=== PATIENT | female | born 1950 | race Caucasian/White ===

== ENCOUNTER 2017-05-26 19:56 | Observation (INO) | payer SELFPAY ==
[2017-05-26] MEDS ORDERED: NS 0.9% 1000 ML* 1,000 ML IV ONE ×2 (20:38→22:51)
[2017-05-26 22:23] LABS: Hematocrit 41 % (35-47); Hemoglobin 13.9 g/dl (12.0-16.0); Mean Corpuscular HGB Conc 34 g/dl (31-36); Mean Corpuscular Hemoglobin 31 pg (27-31); Mean Corpuscular Volume 92 fL (80-97); Mean Platelet Volume 8 um3 (7.4-10.4); Red Blood Count 4.46 10^6/ul (4.0-5.4); Red Cell Distribution Width 15 % (10.5-15); White Blood Count 7.5 10^3/ul (3.5-10.8)
[2017-05-26 22:43] LABS: Albumin 3.7 g/dL (3.2-5.2); BUN/Creatinine Ratio 5.3 (8-20); C Reactive Protein 14.95 mg/L (< 5.00); Calcium 9.2 mg/dL (8.6-10.3); EGFR African American 136.1 (>60); EGFR Non-African American 105.8 (>60); Total Bilirubin 0.9 mg/dL (0.2-1.0); Total Protein 6.7 g/dL (6.4-8.9)
[2017-05-26 22:44] LABS: Troponin I 0.01 ng/mL (<0.04)
[2017-05-26 22:48] LABS: Urine Bacteria Absent (Absent); Urine Bilirubin Negative (Negative); Urine Glucose Negative (Negative); Urine Nitrite Negative (Negative)
[2017-05-26 22:49] LABS: Potassium 2.2 mmol/L (3.5-5.0)
[2017-05-26] MEDS ORDERED: KCL 20 MEQ/100 ML IVPREMIX* 20 MEQ/100 ML BAG IV ONE ×2 (22:49→22:50)
[2017-05-26] MEDS ORDERED: Potassium Chlor TAB* 20 MEQ TAB.ER PO ONE (22:51)
[2017-05-26] MEDS ORDERED: Iohexol 300* (CONTRAST) 10 ML SDV IV ONE (22:56)
--- NOTE | 2017-05-26 22:57 | ED ---
Abdominal Pain/Female - HPI Summary HPI Summary: 67F presents with abdominal pain for past 5 days. She states the abdominal pain has increased for past day. she admits to nausea, vomiting. She admits to diarrhea that is chronic. she has PMH of gastroparesis which follows dr maldonado for. She states they have not found a medication that works for her gastroparesis as is allergic to reglan. She called dr maldonado who said come to ED or follow up tomorrow. She states today she noticed tingling in bilateral legs today. She states her stomach feels numb. she also states knees feel numb. She denies any chest pain or SOB. She denies any headache or dizziness. She is still able to ambulate. She denies any injury to lower extremities. She denies any fever. She has had gallbladder and uterus removed in prior surgeries. She states stomach feels like it is knotted. The location of the pain is a little bit different than normal gastroparesis pain. She states she had a cold recently. She denies any fever. She states cough has been resolved. She admits to sinus congestion that has been resolving. - History of Current Complaint Chief Complaint: Rayo Stated Complaint: ABD PAIN/DIZZINESS/NUMBNESS IN BOTH LEGS Time Seen by Provider: 05/26/17 20:17 Pain Intensity: 7 Allergies/Adverse Reactions: Allergies Allergy/AdvReac Type Severity Reaction Status Date / Time Metoclopramide [From Reglan] Allergy Intermediate Psychosis Verified 02/20/16 13 :21 Home Medications: Home Medications Cholestyramine Resin* [Questran*] 4 gm PO DAILY 05/26/17 [History Confirmed ] PMH/Surg Hx/FS Hx/Imm Hx Endocrine/Hematology History: Denies: Hx Anticoagulant Therapy, Hx Blood Disorders, Hx Blood Transfusions, Hx Bone Marrow Disease, Hx Diabetes, Hx Systemic Lupus Erythematosus, Hx Sickle Cell Disease, Hx Thyroid Disease, Hx Anemia, Hx Unexplained Bleeding, Other Endocrine/Hematological Disorders Cardiovascular History: Reports: Hx Hypercholesterolemia, Hx Hypertension, Other Cardiovascular Problems/Disorders - Hx of hypercholesterolemia Denies: Hx Aneurysm, Hx Angina, Hx Angioplasty, Hx Auto Implanted Cardiovert Defib, Hx Cardiac Arrest, Hx Cardiomegaly, Hx Congenital Heart Disease, Hx Congestive Heart Failure, Hx Coronary Artery Disease, Hx Deep Vein Thrombosis, Hx Embolism, Hx Hypotension, Hx Myocardial Infarction, Hx Pacemaker/ICD, Hx Peripheral Vascular Disease, Hx Rheumatic Fever, Hx Syncope, Hx Valvular Heart Disease Respiratory History: Denies: Hx Asthma, Hx Chronic Bronchitis, Hx Chronic Obstructive Pulmonary Disease (COPD), Hx Cystic Fibrosis, Hx Lung Cancer, Hx Pleural Effusion, Hx Pneumonia, Hx Pulmonary Edema, Hx Pulmonary Embolism, Hx Seasonal Allergies, Hx Sleep Apnea, Other Respiratory Problems/Disorders GI History: Reports: Hx Gall Bladder Disease - jerry, Hx Gastroesophageal Reflux Disease, Hx Irritable Bowel, Other GI Disorders - Diverticulitis,gerd,ibs Denies: Hx Cirrhosis, Hx Crohn's Disease, Hx Diverticulosis, Hx Gastrointestinal Bleed, Hx Hiatal Hernia, Hx Jaundice, Hx Obstructive Bowel, Hx Ileostomy, Hx Pyloric Stenosis, Hx Ulcer History: Denies: Hx Acute Renal Failure, Hx Benign Prostatic Hyperplasia, Hx Chronic Renal Failure, Hx Dialysis, Hx Kidney Infection, Hx Kidney Stones, Hx Renal Disease, Other Problems/Disorders Musculoskeletal History: Reports: Hx Back Problems, Hx Bursitis, Hx Osteoporosis , Other Musculoskeletal History - Crushed L4 Vertabra Denies: Hx Arthritis, Hx Rheumatoid Arthritis, Hx Congenital Bone Abnormalities, Hx Fibromyalgia, Hx Gout, Hx Orthopedic Injury, Hx Scoliosis, Hx Tendonitis Sensory History: Denies: Hx Cataracts, Hx Contacts or Glasses, Hx Eye Injury, Hx Eye Prosthesis, Hx Glaucoma, Hx Legally Blind, Hx Macular Degeneration, Hx Vision Problem, Hx Deafness, Hx Hearing Aid, Hx Hearing Problem, Other Sensory Impairments Opthamlomology History: Denies: Hx Cataracts, Hx Contacts or Glasses, Hx Eye Injury, Hx Eye Prosthesis, Hx Glaucoma, Hx Legally Blind, Hx Macular Degeneration, Hx Vision Problem, Other Sensory Impairments Neurological History: Denies: Hx Dementia, Hx Developmental Delay, Hx Headaches, Hx Migraine, Hx Nerve Disease, Hx Seizures, Hx Spinal Cord Injury, Hx Transient Ischemic Attacks (TIA), Other Neuro Impairments/Disorders Psychiatric History: Reports: Hx Anxiety, Hx Depression Denies: Hx Attention Deficit Hyperactivity Disorder, Hx Eating Disorder, Hx Panic Disorder, Hx Post Traumatic Stress Disorder, Hx Inpatient Treatment, Hx Community Mental Health Tx, Hx Schizophrenia, Hx Bipolar Disorder, Hx Suicide Attempt, Hx of Violent Episodes Against Others, Hx Substance Abuse, Other Psychiatric Issues/Disorders - Cancer History Hx Chemotherapy: No - Surgical History Surgery Procedure, Year, and Place: Cholecystectomy 1999; Hysterectomy 1999 Hx Anesthesia Reactions: No - Immunization History Date of Influenza Vaccine: has not received at this time. Infectious Disease History: No Infectious Disease History: Denies: Hx Clostridium Difficile, Hx Hepatitis, Hx Human Immunodeficiency Virus (HIV), Hx of Known/Suspected MRSA, Hx Shingles, Hx Tuberculosis, Hx Known/ Suspected VRE, Hx Known/Suspected VRSA, History Other Infectious Disease, Traveled Outside the [place] in Last 30 Days - Family History Known Family History: Positive: None - reviewed & noncontributory - Social History Alcohol Use: None Hx Substance Use: No Substance Use Type: Reports: None Hx Tobacco Use: No Smoking Status (MU): Never Smoked Tobacco Review of Systems Negative: Fever Negative: Chest Pain Negative: Shortness Of Breath Positive: Abdominal Pain, Vomiting, Diarrhea, Nausea Positive: Other - tingling in legs All Other Systems Reviewed And Are Negative: Yes Physical Exam Triage Information Reviewed: Yes Vital Signs On Initial Exam: Initial Vitals Temp Pulse Resp BP Pulse Ox 97.8 F 91 16 114/71 98 05/26/17 20:10 05/26/17 20:10 05/26/17 20:10 05/26/17 20:10 05/26/17 20:10 Vital Signs Reviewed: Yes Appearance: Positive: Well-Appearing Skin: Positive: Warm, Dry Head/Face: Positive: Normal Head/Face Inspection Eyes: Positive: Normal, EOMI, PEDRITO, Conjunctiva Clear ENT: Positive: Normal ENT inspection, Pharynx normal, TMs normal Respiratory/Lung Sounds: Positive: Clear to Auscultation, Breath Sounds Present Cardiovascular: Positive: Normal, RRR Abdomen Description: Positive: Soft, Other: - tenderness in center of abdomen, no rebound Bowel Sounds: Positive: Present Musculoskeletal: Positive: Normal Neurological: Positive: Normal Psychiatric: Positive: Normal Diagnostics - Vital Signs Vital Signs Temp Pulse Resp BP Pulse Ox 05/26/17 22:08 79 97 05/26/17 21:53 76 124/72 91 05/26/17 21:00 82 93 05/26/17 20:30 83 132/67 94 05/26/17 20:25 83 95 05/26/17 20:24 129/67 05/26/17 20:10 97.8 F 91 16 114/71 98 - Laboratory Lab Results: Lab Results 05/26/17 05/26/17 05/26/17 Range/Units 22:00 22:00 22:00 WBC 7.5 (3.5-10.8) 10^3/ul RBC 4.46 (4.0-5.4) 10^6/ul Hgb 13.9 (12.0-16.0) g/dl Hct 41 (35-47) % MCV 92 (80-97) fL MCH 31 (27-31) pg MCHC 34 (31-36) g/dl RDW 15 (10.5-15) % Plt Count 253 (150-450) 10^3/ul MPV 8 (7.4-10.4) um3 Neut % (Auto) 47.9 (38-83) % Lymph % (Auto) 38.1 (25-47) % [place] % (Auto) 11.4 H (1-9) % Eos % (Auto) 1.7 (0-6) % Baso % (Auto) 0.9 (0-2) % Absolute Neuts (auto) 3.6 (1.5-7.7) 10^3/ul Absolute Lymphs (auto) 2.8 (1.0-4.8) 10^3/ul Absolute Monos (auto) 0.8 (0-0.8) 10^3/ul Absolute Eos (auto) 0.1 (0-0.6) 10^3/ul Absolute Basos (auto) 0.1 (0-0.2) 10^3/ul Absolute Nucleated RBC 0.02 10^3/ul Nucleated RBC % 0.3 Sodium 136 (133-145) mmol/L Potassium 2.2 L* (3.5-5.0) mmol/L Chloride 88 L (101-111) mmol/L Carbon Dioxide 35 H (22-32) mmol/L Anion Gap 13 H (2-11) mmol/L BUN 3 L (6-24) mg/dL Creatinine 0.57 (0.51-0.95) mg/dL Est GFR ( Amer) 136.1 (>60) Est GFR (Non-Af Amer) 105.8 (>60) BUN/Creatinine Ratio 5.3 L (8-20) Glucose 113 H (70-100) mg/dL Lactic Acid 4.0 H* (0.5-2.0) mmol/L Calcium 9.2 (8.6-10.3) mg/dL Total Bilirubin 0.90 (0.2-1.0) mg/dL AST 31 (13-39) U/L ALT 10 (7-52) U/L Alkaline Phosphatase 170 H (34-104) U/L Troponin I 0.01 (<0.04) ng/mL C-Reactive Protein 14.95 H (< 5.00) mg/L Total Protein 6.7 (6.4-8.9) g/dL Albumin 3.7 (3.2-5.2) g/dL Globulin 3.0 (2-4) g/dL Albumin/Globulin Ratio 1.2 (1-3) Lipase 63 (11.0-82.0) U/L Urine Color Urine Appearance Urine pH (5-9) Ur Specific [place] (1.010-1.030) Urine Protein (Negative) Urine Ketones (Negative) Urine Blood (Negative) Urine Nitrate (Negative) Urine Bilirubin (Negative) Urine Urobilinogen (Negative) Ur Leukocyte Esterase (Negative) Urine WBC (Auto) (Absent) Urine RBC (Auto) (Absent) Ur Squamous Epith Cells (Absent) Urine Bacteria (Absent) Urine Glucose (Negative) 05/26/17 Range/Units 22:00 WBC (3.5-10.8) 10^3/ul RBC (4.0-5.4) 10^6/ul Hgb (12.0-16.0) g/dl Hct (35-47) % MCV (80-97) fL MCH (27-31) pg MCHC (31-36) g/dl RDW (10.5-15) % Plt Count (150-450) 10^3/ul MPV (7.4-10.4) um3 Neut % (Auto) (38-83) % Lymph % (Auto) (25-47) % [place] % (Auto) (1-9) % Eos % (Auto) (0-6) % Baso % (Auto) (0-2) % Absolute Neuts (auto) (1.5-7.7) 10^3/ul Absolute Lymphs (auto) (1.0-4.8) 10^3/ul Absolute Monos (auto) (0-0.8) 10^3/ul Absolute Eos (auto) (0-0.6) 10^3/ul Absolute Basos (auto) (0-0.2) 10^3/ul Absolute Nucleated RBC 10^3/ul Nucleated RBC % Sodium (133-145) mmol/L Potassium (3.5-5.0) mmol/L Chloride (101-111) mmol/L Carbon Dioxide (22-32) mmol/L Anion Gap (2-11) mmol/L BUN (6-24) mg/dL Creatinine (0.51-0.95) mg/dL Est GFR ( Amer) (>60) Est GFR (Non-Af Amer) (>60) BUN/Creatinine Ratio (8-20) Glucose (70-100) mg/dL Lactic Acid (0.5-2.0) mmol/L Calcium (8.6-10.3) mg/dL Total Bilirubin (0.2-1.0) mg/dL AST (13-39) U/L ALT (7-52) U/L Alkaline Phosphatase (34-104) U/L Troponin I (<0.04) ng/mL C-Reactive Protein (< 5.00) mg/L Total Protein (6.4-8.9) g/dL Albumin (3.2-5.2) g/dL Globulin (2-4) g/dL Albumin/Globulin Ratio (1-3) Lipase (11.0-82.0) U/L Urine Color Yellow Urine Appearance Clear Urine pH 8.0 (5-9) Ur Specific [place] 1.006 L (1.010-1.030) Urine Protein Negative (Negative) Urine Ketones Negative (Negative) Urine Blood Negative (Negative) Urine Nitrate Negative (Negative) Urine Bilirubin Negative (Negative) Urine Urobilinogen Negative (Negative) Ur Leukocyte Esterase Trace H (Negative) Urine WBC (Auto) Trace(0-5/hpf) (Absent) Urine RBC (Auto) Trace(0-2/hpf) (Absent) Ur Squamous Epith Cells Present H (Absent) Urine Bacteria Absent (Absent) Urine Glucose Negative (Negative) Result Diagrams: 05/26/17 22:00 05/26/17 22:00 Lab Statement: Any lab studies that have been ordered have been reviewed, and results considered in the medical decision making process. - CT abd CT Interpretation: No Acute Changes - normal appendix. sigmoid diveritculosis. no obstruction. CT Interpretation Completed By: Radiologist - EKG No standard instances Cardiac Rate: NL EKG Rhythm: Sinus Rhythm EKG Interpretation: sinus rhythm, prolonged QT similiar to previous EKG Comparison: No Significant Change Abdominal Pain Fem Course/Dx - Course Course Of Treatment: 67F presents with abdominal pain for past 5 days. She states the abdominal pain has increased for past day. she admits to nausea, vomiting. She admits to diarrhea that is chronic. she has PMH of gastroparesis which follows dr maldonado for. She states they have not found a medication that works for her gastroparesis as is allergic to reglans. She called dr maldonado who said come to ED or follow up tomorrow. She states today she noticed tingling in bilateral legs today. She states her stomach feels numb. she also states knees feel numb. She denies any chest pain or SOB. She denies any headache or dizziness. She is still able to ambulate. She denies any injury to lower extremities. She denies any fever. She has had gallbladder and uterus removed in prior surgeries. She states stomach feels like it is knotted. The location of the pain is a little bit different than normal gastroparesis pain. on exam is tender in umbilicial area. no rebound. full ROM of extremities. labs wbc normal. ekg comparable to previous. potassium 2.2 gave two runs of potassium and oral potassium. discussed with dr templeton who talked with hospitalist who agree to admit patient. - Diagnoses Differential Diagnosis: Positive: Appendicitis, Bowel Obstruction, Pancreatitis , Urinary Tract Infection Provider Diagnoses: Hypokalemia, Gastroparesis, Abdominal pain Discharge - Discharge Plan Condition: Stable Disposition: ADMITTED TO [facility]
[2017-05-26] MEDS ORDERED: Enoxaparin(*) 40 MG/0.4 ML SYR SUBCUT SCH (23:00)
[2017-05-26] MEDS ORDERED: LORazepam TAB(*) 1 MG PO PRN (23:23)
[2017-05-26] MEDS ORDERED: Acetaminophen TAB* 325 MG PO PRN (23:23)
[2017-05-27] MEDS ORDERED: Zolpidem TAB* 5 MG PO SCH
--- NOTE | 2017-05-27 00:19 | HP ---
H&P (Free Text) History and Physical: Mrs Joseph is a 67F HX IBS presenting with abdominal discomfort, CT report pending, and incidentally found to have hypoKalemia of 2.2. As such we will observe her for K replacement and monitoring of her abdominal pain.
[2017-05-27 00:51] LABS: Magnesium 1.4 mg/dL (1.9-2.7)
[2017-05-27] MEDS ORDERED: Magnesium Sulfate IV* 3 GM in NS 0.9% 100 ML* 100 ML IVPB ONE (01:06)
--- NOTE | 2017-05-27 02:17 | HP ---
CC: Dr. Shore * [facility] MEDICINE HISTORY AND PHYSICAL: DATE OF ADMISSION: 05/26/17 PRIMARY CARE PHYSICIAN: Dr. Shore. ATTENDING PHYSICIAN: Jaime Thurman MD * (dictation provided by Deya Hope NP). CHIEF COMPLAINT: Abdominal pain. HISTORY OF PRESENT ILLNESS: Ms. Joseph is a 65-year-old female with past medical history of irritable bowel syndrome, gastroparesis, GERD, and anxiety who presents today to the hospital with a concern for abdominal pain. Per the report, Ms. Joseph has been feeling unwell recently. She has an ongoing history of irritable bowel syndrome for which she has associated nausea, vomiting, and diarrhea. She also has gastroparesis and limited oral intake in general. Immediately prior to Thanksgiving, she developed a cold and then had a cough with some chest heaviness. She had no fever. Today, the patient woke and was feeling unwell and complained of having feeling of numbness in her abdomen and in her knees. This is an unusual sensation but was also associated with some worsening of her baseline abdominal pain. For this reason, she spoke with Dr. Malik from Gastroenterology who stressed to her that she could come to the emergency room if she was concerned about her symptoms or see him in followup tomorrow. The patient continued to be concerned and felt that she just was not doing well and therefore, decided to come to the ED today. In the emergency room, Ms. Joseph had labs, which showed that she had a significant hypokalemia with potassium of 2.2. Her lactic acid was elevated at 4.0. Her CRP is only 14.95. Urine shows only a trace leuk esterase. The patient had an abdomen and pelvis CT but that is pending. PAST MEDICAL HISTORY: 1. Gastroparesis. 2. Irritable bowel syndrome. 3. Anxiety. 4. Depression. 5. Hyperlipidemia. 6. Cholecystectomy. MEDICATIONS: As an outpatient are: 1. Tylenol 650 mg p.o. q.4 hours p.r.n. 2. Atorvastatin 20 mg p.o. at 1700. 3. Cholestyramine 4 g p.o. daily. 4. Citalopram 40 mg p.o. daily. 5. Dicyclomine 10 mg p.o. 4 times a day. 6. Lorazepam 1 mg p.o. t.i.d. p.r.n. 7. Omeprazole 20 mg p.o. daily. 8. Pregabalin 100 mg p.o. t.i.d. 9. Zolpidem 5 mg p.o. at bedtime. ALLERGIES: To METOCLOPRAMIDE. FAMILY HISTORY: The patient father related to heart attack, mother related to leukemia. SOCIAL HISTORY: The patient has never been a smoker. She drinks alcohol intermittently. There is no report of illicit drug use. She lives alone. She states that her daughter, Corina Joseph would be her healthcare proxy. REVIEW OF SYSTEMS: A 14-point review of systems was completed with Ms. Joseph and all those not mentioned above were negative. PHYSICAL EXAMINATION GENERAL: Ms. Joseph is lying in bed. She is in no acute distress. VITAL SIGNS: Temperature 97.8, pulse rate 79, respiratory rate 16, O2 saturation 97% on room air, blood pressure 124/72. LUNGS: Clear to auscultation bilaterally with no accessory muscle use and good aeration. HEART: S1, S2. No murmur, rub, or gallop and regular. ABDOMEN: Soft. Bowel sounds are positive. The patient describes pain with palpation to the mid abdomen. EXTREMITIES: No cyanosis or edema. NEUROLOGIC: She is alert. She is oriented x3. She moves all extremities equally. There is no facial asymmetry or focal weakness. SKIN: Intact. DIAGNOSTIC STUDIES/LAB DATA: WBC 7.5, hemoglobin 13.9, hematocrit 41, platelet count 253,000. Sodium 136, potassium 2.2, chloride 88, serum bicarbonate 35, BUN 3, creatinine 0.57, glucose 113. Lactic acid 4.0. Troponin 0.01. CRP 14.95. Prealbumin and magnesium are pending. Abdomen and pelvis CT is pending. ASSESSMENT/PLAN: Ms. Joseph is a 67-year-old female with a past medical history of irritable bowel syndrome, gastroesophageal reflux disease, gastroparesis, and hyperlipidemia as well as anxiety and depression, who presents today to the hospital with concern for abdominal pain and a strange sensation of numbness in her abdominal skin and knees and feeling generally unwell. In the emergency room, she has been found to have hypokalemia. Our plans are for observation in the hospital for the followin. Hypokalemia. The patient's potassium is 2.2. Her magnesium is pending. I suspect this is secondary to poor oral intake in the setting of chronic nausea and vomiting with superimposed bronchitis this week. Supplementation is begun in the emergency room. Plan for continuous telemetry monitoring. We will recheck basic metabolic panel in the morning. In addition, plan to add on prealbumin and magnesium given her poor nutritional status. 2. Anxiety and depression. Continue home medications. 3. Gastroesophageal reflux disease. Continue omeprazole. 4. Irritable bowel syndrome. Continue cholestyramine and dicyclomine. 5. DVT prophylaxis with Lovenox. 6. Code status is full code. TIME SPENT: Approximately 60 minutes was spent in admission of this patient, more than half of the time was spent with the patient at the bedside reviewing the events leading up to this hospitalization, performing the physical examination, and reviewing my plan of care. DEYA HOPE NP [id number]/CPS #: [id number] LOW
[2017-05-27] MEDS ORDERED: Loperamide CAP* 2 MG PO ONE (03:25)
[2017-05-27] MEDS ORDERED: Omeprazole CAP* 20 MG PO SCH (06:00)
[2017-05-27] MEDS ORDERED: Enoxaparin(*) 40 MG/0.4 ML SYR SUBCUT SCH (06:00)
[2017-05-27 06:25] LABS: BUN/Creatinine Ratio 4.4 (8-20); Calcium 8.4 mg/dL (8.6-10.3); EGFR African American 178.7 (>60)
--- NOTE | 2017-05-27 07:55 | RAD ---
CLINICAL HISTORY: Umbilical pain. Relevant surgical history includes cholecystectomy and hysterectomy. COMPARISON: Similar CT examination dated February 20, 2016. TECHNIQUE: Contrast enhanced CT examination of the abdomen and pelvis from the lung bases through the initial tuberosities. The patient received 100 mL Omnipaque 300 intravenously prior to imaging.The patient received oral contrast as well prior to imaging. FINDINGS: VISUALIZED LUNG BASES: The visualized lung bases are grossly clear. There is no pleural effusion. There is a small hiatal hernia similar in appearance to the previous CT examination. ABDOMEN AND PELVIS: The liver is homogenously hypodense relative to the spleen. The liver is enlarged measuring up to 22.3 cm in greatest cephalocaudal dimension similar to the prior CT examination. There are no focal liver masses or surface irregularity. The spleen, pancreas and adrenal glands are grossly normal in appearance. The gallbladder is surgically absent. The kidneys are normal in appearance without focal mass, calcification or signs of hydronephrosis. The oral contrast has progressed as far as the rectum. There is questionable mild short segment wall thickening of the small bowel measuring up to 6 mm in thickness (axial image 46 and coronal image 26). The small and large bowel are not distended. The patient's normal appendix is identified in the right lower quadrant with gas and stool in the lumen (axial image 62). There are rectosigmoid diverticula but none exhibit focal inflammatory change. There is no gross retroperitoneal or mesenteric lymphadenopathy. The patient is status post hysterectomy. The abdominal aorta and iliac arteries are normal in course and diameter. Degenerative changes include multilevel loss of intervertebral disc height involving the lower thoracic and lumbar spine.There are no sinister bone lesions. IMPRESSION: 1. Potential short segment wall thickening of the proximal small bowel measuring up to 6 mm in thickness. Infectious or inflammatory etiologies are possible. Alternatively this may simply be secondary to peristalsis/underdistention. 2. Rectosigmoid diverticulosis without acute inflammatory changes characteristic of diverticulitis. 3. Likely hepatic steatosis and hepatomegaly. Please correlate to LFTs. 4. Additional chronic, degenerative and iatrogenic findings described in the body the report.
[2017-05-27] MEDS: Pregabalin CAP(*) 100 MG PO SCH ×2 (08:44→12:55)
[2017-05-27] MEDS: Dicyclomine CAP* 10 MG PO SCH ×2 (08:44→12:55)
[2017-05-27] MEDS ORDERED: Cholestyramine Resin* 4 GM POWDER PO SCH (09:00)
[2017-05-27] MEDS ORDERED: Citalopram TAB* 40 MG PO SCH (09:00)
[2017-05-27] MEDS ORDERED: Ondansetron INJ* 2 MG/ML VIAL IV ONE (10:00)
[2017-05-27 10:31] LABS: Magnesium 2.4 mg/dL (1.9-2.7)
[2017-05-27] MEDS ORDERED: Potassium Chlor TAB* 20 MEQ TAB.ER PO ONE (10:39)
[2017-05-27] MEDS ORDERED: Trimethobenzamide CAP* 300 MG PO PRN (12:53)
[2017-05-27 15:09] LABS: BUN/Creatinine Ratio 6.1 (8-20); Calcium 8.4 mg/dL (8.6-10.3); Potassium 3.4 mmol/L (3.5-5.0)
[2017-05-27 15:36] VITALS: BP 131/67
[2017-05-27] MEDS ORDERED: Atorvastatin* 20 MG TAB PO SCH (17:00)
--- NOTE | 2017-05-28 11:13 | DS ---
CC: Dr. Shore * DISCHARGE SUMMARY: DATE OF ADMISSION: 05/26/17 DATE OF DISCHARGE: 05/27/17 PRIMARY CARE DOCTOR: Dr. Shore. ATTENDING PHYSICIAN WHILE IN THE HOSPITAL: Dr. Meche Haynes * (DICTATED BY ISSA SIMMONS) PRIMARY DISCHARGE DIAGNOSES: 1. Intractable nausea and vomiting. 2. Hypokalemia. 3. Hypomagnesemia. SECONDARY DISCHARGE DIAGNOSES: 1. Gastroparesis. 2. Inflammatory bowel syndrome. 3. Anxiety. 4. Depression. 5. Hyperlipidemia. STUDIES DONE WHILE IN THE HOSPITAL: EKG from 05/26/17 shows rate 81, left axis deviation. No ST-segment abnormalities. Intraventricular conduction delay. QTc of 637, no other abnormalities. Repeat EKG from 05/27/17 shows rate 71. No other significant changes from previous exam except QTc now 519. Abdomen and pelvis CT from 05/26/17 read as potential short-segment wall-thickening in the proximal small bowel measuring up to 6 mm in thickness, infectious or inflammatory etiology possible, alternatively this may simply be secondary peristalsis/underdistention, rectosigmoid diverticulosis without acute inflammatory changes, ileus, likely hepatic steatosis or hepatomegaly. Please correlate LFTs. Additional chronic degenerative iatrogenic findings described in the body of the report. MEDICATIONS AT DISCHARGE: 1. Lyrica 100 mg p.o. t.i.d. 2. Lorazepam 1 mg p.o. t.i.d. 3. Lipitor 20 mg p.o. q. p.m. 4. Tylenol 650 mg p.o. q. 4 hours. 5. Omeprazole 20 mg p.o. q. a.m. 6. Zolpidem 5 mg p.o. at bedtime. 7. Dicyclomine 10 mg p.o. q.i.d. 8. Cholestyramine 4 mg p.o. daily. 9. Trimethobenzamide 300 mg p.o. q. 6 hours as needed. 10. Magnesium oxide 400 mg p.o. daily. 11. Potassium chloride 20 mEq p.o. daily. 12. Citalopram 20 mg p.o. daily. New medications at discharge: 1. Trimethobenzamide. 2. Magnesium oxide. 3. Potassium chloride. 4. Citalopram. Medications discontinued at discharge: 1. Citalopram 40 mg p.o. daily. HOSPITAL COURSE: This is a brief summary of the patient's presentation. For more details please see the history and physical from Deya Hope NP, from 05/27. In brief, patient is a 67-year-old female with the past medical history significant for the above who presented with abdominal pain, nausea, vomiting, and diarrhea. These are chronic problems for the patient and the patient also had some cough and chest heaviness. No fevers. The patient states she has postnasal drip. The patient came into the emergency department and was found to have a potassium of 2.2, lactic acid of 4.0, magnesium 1.4, and other abnormalities consistent with long-term nausea and vomiting. The patient was admitted for electrolyte repletion and antiemetic therapy. On electrocardiogram from the emergency department as noted above the patient's QTc was severely elongated. This was severely increased from her baseline of approximately 500 on previous exams. The patient improved significantly with fluids. Patient's repeat lactic acid was at 1.4. Patient also responded well to potassium supplementation initially going up to 3.0 and then 3.4. The patient 's repeat magnesium after 3 g was 2.4, repeat EKG showed a QTc of 519 as above. The patient felt much better and had significant relief of her nausea and abdominal pain with Tigan. Patient stated she felt well-enough to go home and patient's citalopram was decreased due to concerns for QT prolongation. The patient was also started on long-term magnesium, potassium supplementation. To follow up with her primary care doctor to monitor her levels. PHYSICAL EXAMINATION: On the day of discharge: General: The patient is a 67- year- old female who appears her stated age and sitting in the bed in no acute distress. Vital signs at discharge: Temperature 98.2, pulse rate 70, respiratory rate 18 , oxygen saturation 97% on room air, and blood pressure 131/67. HEENT: Head normocephalic and atraumatic. Sclerae anicteric. No conjunctival injection. Oral and nasal mucosa moist. Slight postnasal drip noticed in the posterior pharynx. Pharynx nonerythematous and no other abnormalities. Neck: Supple and nontender. No lymphadenopathy. No carotid bruits auscultated. Respiratory: Clear to auscultation bilaterally. No wheezes, rales, or rhonchi. Cardiac: Regular, rate, and rhythm. No clicks, murmurs, gallops, or rubs. Pulses 2+ bilaterally in the posterior tibialis, dorsalis pedis, and radial areas. No edema noted in the lower extremities. Abdomen: Soft, diffusely tender which the patient states is normal for her. Bowel sounds present and hyperactive in all 4 quadrants. No hepatosplenomegaly. Genitourinary: No suprapubic tenderness or CVA tenderness. Skin: No rash. Clean, dry, and intact. Neuro: Cranial nerves II through XII grossly intact. Alert and oriented x3. No other focal deficits. Psychiatric: Pleasant and cooperative. LABORATORY DATA: Admission white blood cell count 7.5, hemoglobin 13.9, platelet count 253. Sodium 136, potassium 2.2, chloride 88, carbon dioxide 35, anion gap 13, BUN 3, creatinine 0.57, glucose 113, lactic acid 4.0, magnesium 1.4, calcium 9.2, total bilirubin 0.9. AST 31, ALT 10, alkaline phosphatase 170 , troponin I 0.01. CRP 14.95, lipase is 53, prealbumin 21, total protein 6.7, albumin 3.7, globulin 3.0, urine benign. Patient's laboratory values improved as above. DISCHARGE PLAN: The patient will be discharged to home. The patient's QTc prolonging agents have been dialled back or discontinued. The patient was started on Tigan for antiemetic therapy with good effect. It was discussed with patient starting her on erythromycin or domperidone for her gastroparesis. Erythromycin was deferred at this point due to QTc prolongation concern. Domperidone would be a better agent due to fear of concern with tachyphylaxis. However, recommend followup EKG beforehand. The patient's Celexa decreased from 40 to 20 due to concerns of QTc prolongation. Discussed with the patient that it might be beneficial to switch to a different agent with fewer concerns due to hopeful plan in the future of starting her on domperidone. The patient was started on magnesium and potassium daily. The patient should follow up with her primary care doctor within a week and have a repeat BMP and magnesium drawn to assess efficacy of therapy. The patient should take Tigan as needed for nausea and vomiting. The patient should return to the hospital for any alarming symptoms such as intractable nausea and vomiting, vomiting blood, chest pain, or shortness of breath. ACTIVITY: As tolerated. DIET: Unrestricted, but with caution to avoid foods that upset the patient's stomach. TIME SPENT: Approximately 40 minutes was spent on this discharge, 20 of which was spent [id number] with the patient obtaining history and physical and discussing treatment plan. ISSA SIMMONS [id number]/[place] #: [id number] LOW
== END 2017-05-27 17:33 | disposition home or self-care (01) ==
LOC: ED 19:56 → MEDTELE 05-27 00:14
PROVIDERS: ADMIT Hospitalist; ATTEND Hospitalist
DX: R11.2 Nausea with vomiting, unspecified (principal); E87.6 Hypokalemia; E83.42 Hypomagnesemia; K31.84 Gastroparesis; F41.9 Anxiety disorder, unspecified; F32.9 Major depressive disorder, single episode, unspecified; E78.5 Hyperlipidemia, unspecified; Z79.899 Other long term (current) drug therapy; K58.9 Irritable bowel syndrome, unspecified; R94.31 Abnormal electrocardiogram [ECG] [EKG]; I45.81 Long QT syndrome
CPT/HCPCS: 36415; 74177; 80048; 80053; 81003; 81015; 83605; 83690; 83735; 84134; 84484; 85025; 86140; 87086; 93005; 96365; 96366; 96367; 96375; 99284; A9270-GY; G0378; J1650; J2405; J3475; J3480; Q9967

== ENCOUNTER 2017-08-24 10:50 | Emergency (ER) | payer MEDICARE ==
--- NOTE | 2017-08-24 12:08 | UC ---
Lower Extremity/Ankle HPI - HPI Summary HPI Summary: twisted right foot in blankets that were on the floor last Sudays (6 days ago) Immediate pain and swelling in right great toe--then three days later developed pain in right medial ankle - History of Current Complaint Chief Complaint: UCLowerExtremity Stated Complaint: FOOT INJURY Time Seen by Provider: 08/24/17 12:07 Hx Obtained From: Patient ?: No Onset/Duration: Sudden Onset, Lasting Days - 6, Still Present, Worse Since - past 3 days Severity Initially: Moderate Severity Currently: Severe Pain Intensity: 10 Pain Scale Used: 0-10 Numeric Aggravating Factor(s): Standing, Ambulation Alleviating Factor(s): Nothing Able to Bear Weight: No - Allergies/Home Medications Allergies/Adverse Reactions: Allergies Allergy/AdvReac Type Severity Reaction Status Date / Time metoclopramide [From Reglan] Allergy See Comment Verified 08/24/17 11:38 Home Medications: Home Medications Domperidone 08/24/17 [History] Ibuprofen [Advil] 600 mg PO 08/24/17 [History] traMADol TAB* [Ultram*] 50 mg PO Q6HR PRN 08/24/17 [History Confirmed 08/24/17] PMH/Surg Hx/FS Hx/Imm Hx Previously Healthy: No Endocrine History: Dyslipidemia GI/ History: Gastroesophageal Reflux, Other Other GI/ History: gastroparesis Psychological History: Anxiety, Depression Other History Of: Negative For: Anticoagulant Therapy - Surgical History Surgical History: Yes Surgery Procedure, Year, and Place: Cholecystectomy 1999; Hysterectomy 1999 - Family History Known Family History: Positive: None - reviewed & noncontributory - Social History Occupation: Retired Lives: With Family Alcohol Use: None Substance Use Type: None Smoking Status (MU): Never Smoked Tobacco Have You Smoked in the Last Year: No - Immunization History Most Recent Influenza Vaccination: fall Most Recent Tetanus Shot: not within last 10 years Most Recent Pneumonia Vaccination: never Hx Tetanus, Diphtheria Vaccination: Yes Vaccination Up to Date: Yes Review of Systems Constitutional: Negative Skin: Negative Eyes: Negative ENT: Negative Respiratory: Negative Cardiovascular: Negative Gastrointestinal: Negative Genitourinary: Negative Motor: Negative Neurovascular: Negative Musculoskeletal: Arthralgia - right great toe and ankle Neurological: Negative Psychological: Negative Is Patient Immunocompromised?: No All Other Systems Reviewed And Are Negative: Yes Physical Exam Triage Information Reviewed: Yes Appearance: Well-Appearing, No Pain Distress, Well-Nourished Vital Signs: Initial Vital Signs Temp 97.5 F 08/24/17 11:32 Pulse 78 08/24/17 11:32 Resp 18 08/24/17 11:32 BP 125/74 08/24/17 11:32 Pulse Ox 99 08/24/17 11:32 Vital Signs Reviewed: Yes Eye Exam: Normal Eyes: Positive: Conjunctiva Clear ENT Exam: Normal ENT: Positive: Normal ENT inspection, Hearing grossly normal, Pharynx normal. Negative: Nasal congestion, Trismus, Muffled voice, Hoarse voice, Dental tenderness, Sinus tenderness Dental Exam: Normal Neck exam: Normal Neck: Positive: Supple, Nontender, No Lymphadenopathy Respiratory Exam: Normal Respiratory: Positive: Chest non-tender, Lungs clear, Normal breath sounds, No respiratory distress, No accessory muscle use Cardiovascular Exam: Normal Cardiovascular: Positive: RRR, No Murmur, Pulses Normal, Brisk Capillary Refill Musculoskeletal Exam: Other Musculoskeletal: Positive: Strength Limited @ - right ankle, ROM Limited @ - right great toe, Edema @ - right great toe Neurological Exam: Normal Neurological: Positive: Alert, Muscle Tone Normal Psychological Exam: Normal Skin Exam: Normal Diagnostics - Radiology No standard instances Xray Interpretation: No Acute Changes Radiology Interpretation Completed By: Radiologist Lower Extremity Course/Dx - Course Course Of Treatment: Lab studies for gout, lyme, and cbc---immob. follow with Dr. Shore - Differential Dx/Diagnosis Provider Diagnoses: Right foot pain Discharge - Discharge Plan Condition: Stable Disposition: HOME Prescriptions: Hydrocodone/Acetaminophen [Hydrocodone-Acetamin 5-325 mg] 1 each PO QID PRN #12 tablet MDD 4 PRN Reason: Pain Patient Education Materials: Ibuprofen (By mouth), Gout (ED), Arthralgia (ED) Referrals: Michael Shore MD [Primary Care Provider] - 3 Days
[2017-08-24] MEDS ORDERED: HYDROcodone/ACETAMIN 5-325 MG* 1 TAB PO ONE (12:18)
[2017-08-24 13:38] VITALS: BP 121/89
--- NOTE | 2017-08-24 14:14 | RAD ---
Indication: Right foot pain. 3 views of the right foot demonstrates no fracture or dislocation. No other bone or joint abnormality is identified. IMPRESSION: No fracture of the right foot is noted.
--- NOTE | 2017-08-24 15:00 | RAD ---
Indication: Right great toe injury. 3 views of the right great toe demonstrates no fracture. No other bone or joint abnormality is noted. IMPRESSION: No fracture of the right great toe is noted.
[2017-08-25 14:26] LABS: Hematocrit 38 % (35-47); Hemoglobin 13.1 g/dl (12.0-16.0); Mean Corpuscular HGB Conc 35 g/dl (31-36); Mean Corpuscular Hemoglobin 33 pg (27-31); Mean Corpuscular Volume 94 fL (80-97); Mean Platelet Volume 8 um3 (7.4-10.4); Platelet Count 276 10^3/ul (150-450); Red Blood Count 4.04 10^6/ul (4.0-5.4); Red Cell Distribution Width 15 % (10.5-15); White Blood Count 8.7 10^3/ul (3.5-10.8)
[2017-08-25 15:42] LABS: ABS Basophils 0.1 10^3/ul (0-0.2); ABS Eosinophils 0.2 10^3/ul (0-0.6); ABS Lymphocytes 2.4 10^3/ul (1.0-4.8); ABS Monocytes 0.7 10^3/ul (0-0.8); ABS Neutrophils 5.4 10^3/ul (1.5-7.7); ABS Nucleated RBC 0.1 10^3/ul; Eosinophil % 1.9 % (0-6); Lymphocyte % 27.3 % (25-47); Nucleated Red Blood Cells % 0.8
--- NOTE | 2017-08-25 21:41 | UC ---
- Progress Note Progress Note: Pt CBC and uric acid returned. CBC WNL. Uric acid elevated indicating gout. Please call her and let her know. Sent script for Indomethicin TID for 5 days and Prednisone 20mg BID for 5 days. Please stop taking ibuprofen with these medications. F/u if symptoms persist.
== END 2017-08-24 14:50 | disposition home or self-care (01) ==
LOC: UCEAST 10:50
DX: M79.671 Pain in right foot (principal); K21.9 Gastro-esophageal reflux disease without esophagitis; F41.9 Anxiety disorder, unspecified; F32.9 Major depressive disorder, single episode, unspecified; X50.1XXA Overexertion from prolonged static or awkward postures, initial encounter; Y92.9 Unspecified place or not applicable; E78.5 Hyperlipidemia, unspecified
CPT/HCPCS: 36415; 84550; 85025; 86618; 99212; G0463

== ENCOUNTER 2017-09-06 17:28 | Observation (INO) | payer MEDICARE ==
[2017-09-06 18:20] LABS: ABS Basophils 0 10^3/ul (0-0.2); ABS Eosinophils 0.1 10^3/ul (0-0.6); ABS Lymphocytes 2.2 10^3/ul (1.0-4.8); ABS Neutrophils 3.9 10^3/ul (1.5-7.7); ABS Nucleated RBC 0 10^3/ul; Hematocrit 39 % (35-47); Hemoglobin 13.5 g/dl (12.0-16.0); Lymphocyte % 30.6 % (25-47); Mean Corpuscular HGB Conc 35 g/dl (31-36); Mean Corpuscular Hemoglobin 31 pg (27-31); Mean Corpuscular Volume 91 fL (80-97); Mean Platelet Volume 8 um3 (7.4-10.4); Nucleated Red Blood Cells % 0.1; Platelet Count 260 10^3/ul (150-450); Red Blood Count 4.31 10^6/ul (4.0-5.4); Red Cell Distribution Width 15 % (10.5-15); White Blood Count 7.3 10^3/ul (3.5-10.8)
[2017-09-06 18:38] LABS: EGFR Non-African American 123.1 (>60)
[2017-09-06] MEDS ORDERED: Magnesium Sulfate 1 GM IV* 1 GM/100 ML BAG IV ONE (18:39)
[2017-09-06] MEDS ORDERED: Potassium Chlor TAB* 20 MEQ TAB.ER PO ONE (18:39)
[2017-09-06 19:00] LABS: Urine Appearance Clear; Urine Blood Negative (Negative); Urine Color Straw; Urine Ketones Negative (Negative); Urine Protein Negative (Negative); Urine Specific Gravity 1.002 (1.010-1.030); Urine Urobilinogen Negative (Negative)
[2017-09-06] MEDS: KCL 10 MEQ/50 ML IVPREMIX* 10 MEQ/50 ML BAG IV SCH (19:02)
--- NOTE | 2017-09-06 19:06 | RAD ---
Indication: Chest pain. 2 views of the chest including dual energy PA views demonstrate no mediastinal shift. Heart is of normal size and configuration. Lung [place] are clear. No pleural fluid is noted. IMPRESSION: No active cardiopulmonary disease is noted.
[2017-09-06] MEDS ORDERED: Magnesium Sulfate 2 GM IV* 2 GM/50 ML BAG IVPB ONE (19:19)
[2017-09-06] MEDS ORDERED: Potassium Chloride LIQUID* 20 MEQ PACKET PO ONE (19:19)
[2017-09-06] MEDS ORDERED: Aspirin Low Dose CHEW TAB* 81 MG PO ONE (19:55)
[2017-09-06] MEDS: Pregabalin CAP(*) 100 MG PO SCH (21:07)
[2017-09-06] MEDS: Temazepam CAP* 15 MG PO SCH (21:08)
[2017-09-06] MEDS: Colchicine* 0.6 MG TAB PO SCH (21:08)
[2017-09-06] MEDS: Dicyclomine CAP* 10 MG PO SCH (21:09)
[2017-09-06] MEDS: DOMPERIDONE PO SCH (21:11)
[2017-09-06] MEDS: Heparin VIAL(*) 5000 UNITS/ML VIAL (FIVE THOUSAND) SUBCUT SCH (21:11)
--- NOTE | 2017-09-06 21:16 | HP ---
CC: Dr. Shore.* HISTORY AND PHYSICAL: DATE OF ADMISSION: 09/06/17 PRIMARY CARE PROVIDER: Dr. Shore. ATTENDING PHYSICIAN WHILE IN THE HOSPITAL: Dr. Jaime Thurman * (report dictated by Harrison Conrad NP). CHIEF COMPLAINT: 1. Chest pain. 2. Body aches. 3. Not feeling well. HISTORY OF PRESENT ILLNESS: Mrs. Joseph is a 67-year-old female patient. She has a well-documented history of gastroparesis. She has a history of IBS, anxiety, depression, hyperlipidemia, and GERD. For the last couple of days, she has had diffuse body aches, she has not been feeling well. There has been no reports of fevers or vomiting or diarrhea. She said today around 1600, she started having some chest discomfort, it was nonexertional and happened at rest. It was constant, it has now gone away. She is having pain throughout her abdomen which she says is consistent with her gastroparesis. She has no recurrent shortness of breath. There is abdominal pain, diffuse in the lower part of her abdomen. She does state that she has diarrhea constantly, which is not a new finding for her. She denies having any chest pain currently. She says that she has not had any fevers or chills and she says that of note she has not taken her gastroparesis medication, domperidone, for almost a month now because she is having difficulty obtaining it. She was concerned because of the chest discomfort. She denied any orthopnea or dyspnea on exertion. She denied having any swelling in her lower extremities or weight gain. She came into the ED, was evaluated, and it was found that she had profound lab abnormalities. Her potassium was 2.4, her mag was 1.3 and her lactic was 2.9 and her LFTs were mildly elevated as well. The patient was evaluated in the ED. Because of the lab abnormalities, we were asked to evaluate for admission. PAST MEDICAL HISTORY: Significant for: 1. Gastroparesis. 2. IBS. 3. Anxiety. 4. Depression. 5. Hyperlipidemia. 6. GERD. PAST SURGICAL HISTORY: The patient had a cholecystectomy. She had also had a hysterectomy. HOME MEDICATIONS: Include: 1. Restoril 15 mg p.o. at bedtime. 2. Norvasc 5 mg p.o. daily. 3. Lexapro 20 mg daily. 4. Bentyl 10 mg p.o. q.i.d. 5. Domperidone 1 capsule p.o. t.i.d. 6. Advil 600 mg every 6 hours as needed. 7. Colchicine 0.6 mg p.o. b.i.d. 8. Ativan 1 mg p.o. t.i.d. as needed. 9. Tigan 300 mg p.o. every 6 hours as needed. 10. Lyrica 100 mg p.o. t.i.d. 11. Prilosec 20 mg p.o. daily. ALLERGIES TO MEDICATIONS: Include REGLAN. FAMILY HISTORY: Her mother had a history of leukemia. Father had a history of [place]. SOCIAL HISTORY: Surrogate decision maker is her daughter, Deya. She does not smoke. She does state that she drinks 2 to 3 times a week, 2 shots with 2 other drinks when she does drink, so a total of 4 drinks 2 to 3 times a week she says. She denied any recent alcohol intake. She denies having any recreational drug abuse. Healthcare proxy is her daughter, Deya. REVIEW OF SYSTEMS: She denied any significant weight change. There is no double vision, there is no ear discharge. She denied having any rhinorrhea or sore throat or thyroid enlargement. She did admit to having generalized myalgias and arthralgias. She did admit to having chest discomfort described as a pressure, not worse with exertion, started at 1600, it has now gone. She denied having any shortness of breath with exertion or lying flat. She says that she did have some abdominal discomfort in the epigastric and the lower abdominal area. No nausea or vomiting. No dysuria, frequency, seizure, or loss of consciousness was reported. Review of 14 system completed, all other negative. PHYSICAL EXAMINATION GENERAL: Ms. Joseph is a 67-year-old female patient. She is sitting in the ED stretcher. She does not appear to be in any acute distress. VITAL SIGNS: Blood pressure 121/97, pulse 72, respirations 15, O2 sat 97% on room air, and temperature 98.0. HEENT: Head atraumatic. Eyes: EOMs intact. Sclerae anicteric and not pale. NECK: Supple. Throat; oral mucosa appears to be dry. No oropharyngeal erythema. LUNGS: Clear to auscultation bilaterally. There were no wheezes, rales, or rhonchi. HEART: Sounds S1 and S2. Regular, rate, and rhythm. No murmurs, rubs, or gallops. ABDOMEN: Soft, it was flat. There was tenderness in the lower quadrants, but bowel sounds were present. EXTREMITIES: Pulses were 2+ throughout. She is moving all 4 extremities with 5 /5 strength. She had no peripheral edema. NEUROLOGIC: The patient is awake, she is alert. She is oriented x3. She had no gross focal deficits. Her skin is intact. LABORATORY DATA/DIAGNOSTIC STUDIES: WBC of 7.3, RBC of 4.31, hemoglobin of 13.5, hematocrit of 39, platelet count of 260. Her sodium was 137, potassium was 2.4, chloride of 99, bicarb was 27, her B UN was 5, creatinine of 0.50, glucose at 106, lactic at 2.9, calcium was 9.5, mag 1.3, total bili 0.9, AST 110 , ALT 53, alk phos 129. The CK was 34, CK-MB 0.6, troponin 0. BNP at 19, albumin 3.8. TSH of 0.97. Urine was obtained, it was negative. She had a serum alcohol level, which was negative as well. The patient did have a chest x-ray obtained today. When I reviewed it, I did not appreciate any acute infiltrates or effusions. Radiology read it as no active cardiopulmonary disease. She did have an EKG obtained today which does show a normal sinus rhythm, a rate of 71. She did have inverted T-waves in V2 along with V1. No elevation was noted. When I look through to see if those inversions have been there previously, V2 was flat previously but no gross acute changes were noted that I could see. Old medical records were reviewed. ASSESSMENT AND PLAN: Ms. Joseph is a 67-year-old female patient coming into the hospital today with complaints of body aches, some chest discomfort. In addition to this, she had intermittent shortness of breath which has now resolved except she has lower abdominal discomfort. We were asked to evaluate for admission. She will be admitted under observation status for: 1. Chest pain. Again etiology is unclear. It could be secondary to her gastroparesis. I do think cycling her troponins is warranted, getting an EKG in the morning, place her on telemetry, and continuing to follow her. I will give her a one-time dose of aspirin for the time being and will continue to monitor her closely. We will cycle those troponins. I am also checking a D- dimer. 2. Hypokalemia. Again this is probably secondary to decreased p.o. intake. I will replace this. We will place her on telemetry, repeat her lytes in the morning. 3. Hypomagnesemia. Again we are replacing this, repeat lytes in the morning. 4. Elevated LFTs. I question if there is a component of alcoholism, it is possible that the patient is not all forthright with. I did add a GGT which is pending. I am trending the LFTs. If they continue to elevate tomorrow, I will get an ultrasound. We will continue to follow her for any signs of withdrawal, but her alcohol level here was negative so we can just continue to monitor for now. This certainly could be contributing to the low potassium and low magnesium as well. 5. Depression and anxiety. Continue meds as prescribed. 6. Gastroesophageal reflux disease. Continue meds as prescribed. 7. Hyperlipidemia. Continue statin therapy. 8. Gastroparesis. I did order her, her home meds as prescribed. 9. DVT prophylaxis. She will be placed on heparin subcu. 10. Code status. Full code. 11. Fluids, electrolytes, and nutrition. She will have normal saline at 100 an hour. TIME SPENT: On admission was approximately 60 minutes, greater than half that time was spent [id number] with the patient obtaining my history and physical. Other half the time spent going over the plan of care with the patient, implementing the plan of care. I discussed the plan of care with my attending, Dr. Thurman who is in agreement. HARRISON CONRAD, ZORAIDA [id number]/[facility] #: [id number] LOW
[2017-09-07] MEDS: traMADol TAB* 50 MG PO PRN ×2 (00:51→08:37)
[2017-09-07] MEDS: KCL 10 MEQ/50 ML IVPREMIX* 10 MEQ/50 ML BAG IV SCH ×6 (01:17→17:07)
[2017-09-07] MEDS ORDERED: Lidocaine 2% VISCOUS* 15 ML UDC PO ONE (02:02)
[2017-09-07] MEDS ORDERED: Al Hydrox/Mg Hydrox/Simet LIQ* 30 ML UDC PO ONE (02:02)
[2017-09-07] MEDS: Acetaminophen TAB* 325 MG PO PRN (04:16)
[2017-09-07] MEDS: NS 0.9% 1000 ML* 1,000 ML IV SCH ×3 (04:17→23:16)
[2017-09-07 05:26] LABS: ABS Basophils 0.1 10^3/ul (0-0.2); ABS Eosinophils 0.1 10^3/ul (0-0.6); ABS Lymphocytes 2.2 10^3/ul (1.0-4.8); ABS Monocytes 0.8 10^3/ul (0-0.8); ABS Neutrophils 1.8 10^3/ul (1.5-7.7); ABS Nucleated RBC 0 10^3/ul; Eosinophil % 2.2 % (0-6); Hematocrit 38 % (35-47); Hemoglobin 13.1 g/dl (12.0-16.0); Lymphocyte % 44.9 % (25-47); Mean Corpuscular HGB Conc 35 g/dl (31-36); Mean Corpuscular Hemoglobin 32 pg (27-31); Mean Corpuscular Volume 92 fL (80-97); Mean Platelet Volume 8 um3 (7.4-10.4); Nucleated Red Blood Cells % 0.1; Platelet Count 231 10^3/ul (150-450); Red Blood Count 4.16 10^6/ul (4.0-5.4); Red Cell Distribution Width 15 % (10.5-15)
[2017-09-07 05:42] LABS: EGFR Non-African American 132.2 (>60)
[2017-09-07] MEDS: Omeprazole CAP* 20 MG PO SCH (06:26)
[2017-09-07] MEDS: Heparin VIAL(*) 5000 UNITS/ML VIAL (FIVE THOUSAND) SUBCUT SCH ×3 (06:26→21:16)
[2017-09-07] MEDS: amLODIPine TAB* 5 MG PO SCH (08:36)
[2017-09-07] MEDS: CMCS: Escitalopram (NF) 10 MG TAB PO SCH (08:36)
[2017-09-07] MEDS: Pregabalin CAP(*) 100 MG PO SCH ×3 (08:37→21:15)
[2017-09-07] MEDS: Dicyclomine CAP* 10 MG PO SCH ×4 (08:37→21:15)
[2017-09-07] MEDS: Colchicine* 0.6 MG TAB PO SCH ×2 (08:37→21:14)
[2017-09-07] MEDS: DOMPERIDONE PO SCH ×3 (08:39→21:16)
--- NOTE | 2017-09-07 09:18 | ED ---
Matt Herring Angela, scribed for Timoteo Diallo MD on 09/06/17 at 1759 . HPI Chest Pain - HPI Summary HPI Summary: This pt is a 67 y/o female presenting to [facility] c/o left sided chest pain since approximately 17:00 today. Pt reports that at onset of her chest pain she was at rest sitting. She additionally states SOB, myalgia, and abd pain. Pt describes myalgia as pain from the top of her head down to her toes. Denies fever, chills, nausea, vomiting. Pt has ran out of her medication domperidone which she is supposed to take for gastroparesis. - History of Current Complaint Chief Complaint: EDChestPainROMI Time Seen by Provider: 09/06/17 17:48 Hx Obtained From: Patient Onset/Duration: Started Hours Ago, Still Present Timing: Lasting Hours Current Severity: Severe Pain Intensity: 8 Pain Scale Used: 0-10 Numeric Chest Pain Location: Left Anterior Chest Pain Radiates: No Aggravating Factor(s): Nothing Alleviating Factor(s): Nothing Associated Signs and Symptoms: Positive: Chest Pain, Shortness of Breath, Abdominal Pain, Other: - POS: myalgia. Negative: Fever, Chills, Nausea, Vomiting - Additional Pertinent History Primary Care Physician: [id number] - Allergy/Home Medications Allergies/Adverse Reactions: Allergies Allergy/AdvReac Type Severity Reaction Status Date / Time metoclopramide [From Reglan] Allergy See Comment Verified 08/24/17 11:38 Home Medications: Home Medications Colchicine* [Colcrys*] 0.6 mg PO BID 09/06/17 [History Confirmed 09/06/17] Domperidone 1 cap PO TID 09/06/17 [History Confirmed 09/06/17] Escitalopram (NF) [Lexapro 20 mg (NF)] 20 mg PO DAILY 09/06/17 [History Confirmed 09/06/17] Ibuprofen TAB* [Advil TAB*] 600 mg PO Q6H PRN 09/06/17 [History Confirmed ] LORazepam TAB(*) [Ativan 1 MG TAB (*)] 1 mg PO TID PRN 09/06/17 [History Confirmed 09/06/17] Pregabalin CAP(*) [Lyrica CAP(*)] 100 mg PO TID 09/06/17 [History Confirmed 03/18] Temazepam CAP* [Restoril CAP*] 15 mg PO BEDTIME 09/06/17 [History Confirmed 03/18] amLODIPine TAB* [Norvasc 5 mg TAB*] 5 mg PO DAILY 09/06/17 [History Confirmed ] PMH/Surg Hx/FS Hx/Imm Hx Endocrine/Hematology History: Denies: Hx Anticoagulant Therapy, Hx Blood Disorders, Hx Blood Transfusions, Hx Bone Marrow Disease, Hx Diabetes, Hx Systemic Lupus Erythematosus, Hx Sickle Cell Disease, Hx Thyroid Disease, Hx Anemia, Hx Unexplained Bleeding, Other Endocrine/Hematological Disorders Cardiovascular History: Reports: Hx Hypercholesterolemia, Hx Hypertension - years ago but not any longer, Other Cardiovascular Problems/Disorders - Hx of hypercholesterolemia Denies: Hx Aneurysm, Hx Angina, Hx Angioplasty, Hx Auto Implanted Cardiovert Defib, Hx Cardiac Arrest, Hx Cardiomegaly, Hx Congenital Heart Disease, Hx Congestive Heart Failure, Hx Coronary Artery Disease, Hx Deep Vein Thrombosis, Hx Embolism, Hx Hypotension, Hx Myocardial Infarction, Hx Pacemaker/ICD, Hx Peripheral Vascular Disease, Hx Rheumatic Fever, Hx Syncope, Hx Valvular Heart Disease Respiratory History: Denies: Hx Asthma, Hx Chronic Bronchitis, Hx Chronic Obstructive Pulmonary Disease (COPD), Hx Cystic Fibrosis, Hx Lung Cancer, Hx Pleural Effusion, Hx Pneumonia, Hx Pulmonary Edema, Hx Pulmonary Embolism, Hx Seasonal Allergies, Hx Sleep Apnea, Other Respiratory Problems/Disorders GI History: Reports: Hx Gall Bladder Disease - jerry, Hx Gastroesophageal Reflux Disease, Hx Irritable Bowel, Other GI Disorders - Diverticulitis,gerd,ibs Denies: Hx Cirrhosis, Hx Crohn's Disease, Hx Diverticulosis, Hx Gastrointestinal Bleed, Hx Hiatal Hernia, Hx Jaundice, Hx Obstructive Bowel, Hx Ileostomy, Hx Pyloric Stenosis, Hx Ulcer History: Denies: Hx Acute Renal Failure, Hx Benign Prostatic Hyperplasia, Hx Chronic Renal Failure, Hx Dialysis, Hx Kidney Infection, Hx Kidney Stones, Hx Renal Disease, Other Problems/Disorders Musculoskeletal History: Reports: Hx Back Problems, Hx Bursitis, Hx Osteoporosis , Other Musculoskeletal History - Crushed L4 Vertabra Denies: Hx Arthritis, Hx Rheumatoid Arthritis, Hx Congenital Bone Abnormalities, Hx Fibromyalgia, Hx Gout, Hx Orthopedic Injury, Hx Scoliosis, Hx Tendonitis Sensory History: Reports: Hx Contacts or Glasses - Reading glasses Denies: Hx Cataracts, Hx Eye Injury, Hx Eye Prosthesis, Hx Glaucoma, Hx Legally Blind, Hx Macular Degeneration, Hx Vision Problem, Hx Deafness, Hx Hearing Aid, Hx Hearing Problem, Other Sensory Impairments Opthamlomology History: Reports: Hx Contacts or Glasses - Reading glasses Denies: Hx Cataracts, Hx Eye Injury, Hx Eye Prosthesis, Hx Glaucoma, Hx Legally Blind, Hx Macular Degeneration, Hx Vision Problem, Other Sensory Impairments Neurological History: Denies: Hx Dementia, Hx Developmental Delay, Hx Headaches, Hx Migraine, Hx Nerve Disease, Hx Seizures, Hx Spinal Cord Injury, Hx Transient Ischemic Attacks (TIA), Other Neuro Impairments/Disorders Psychiatric History: Reports: Hx Anxiety, Hx Depression Denies: Hx Attention Deficit Hyperactivity Disorder, Hx Eating Disorder, Hx Panic Disorder, Hx Post Traumatic Stress Disorder, Hx Inpatient Treatment, Hx Community Mental Health Tx, Hx Schizophrenia, Hx Bipolar Disorder, Hx Suicide Attempt, Hx of Violent Episodes Against Others, Hx Substance Abuse, Other Psychiatric Issues/Disorders - Cancer History Hx Chemotherapy: No - Surgical History Surgery Procedure, Year, and Place: Cholecystectomy 1999; Hysterectomy 1999 Hx Anesthesia Reactions: No - Immunization History Date of Influenza Vaccine: has not received at this time. Infectious Disease History: No Infectious Disease History: Denies: Hx Clostridium Difficile, Hx Hepatitis, Hx Human Immunodeficiency Virus (HIV), Hx of Known/Suspected MRSA, Hx Shingles, Hx Tuberculosis, Hx Known/ Suspected VRE, Hx Known/Suspected VRSA, History Other Infectious Disease, Traveled Outside the [place] in Last 30 Days - Family History Known Family History: Positive: Cardiac Disease - Father: fatal [place] Family History: Mother: Leukemia - Social History Alcohol Use: None Hx Substance Use: No Substance Use Type: Reports: None Hx Tobacco Use: No Smoking Status (MU): Never Smoked Tobacco Have You Smoked in the Last Year: No Review of Systems Negative: Fever, Chills Positive: Chest Pain Positive: Shortness Of Breath Positive: Abdominal Pain. Negative: Vomiting, Nausea Positive: Myalgia All Other Systems Reviewed And Are Negative: Yes Physical Exam - Summary Physical Exam Summary: VITAL SIGNS: Reviewed. GENERAL: Patient is a well-developed and nourished female who is lying comfortable in the stretcher. Patient is not in any acute respiratory distress. HEAD AND FACE: No signs of trauma. No ecchymosis, hematomas or skull depressions. No sinus tenderness. EYES: PERRLA, EOMI x 2, No injected conjunctiva, no nystagmus. EARS: Hearing grossly intact. Ear canals and tympanic membranes are within normal limits. MOUTH: Oropharynx within normal limits. NECK: Supple, trachea is midline, no adenopathy, no JVD, no carotid bruit, no c- spine tenderness, neck with full ROM. CHEST: Symmetric, no tenderness at palpation LUNGS: Clear to auscultation bilaterally. No wheezing or crackles. CVS: Regular rate and rhythm, S1 and S2 present, no murmurs or gallops appreciated. ABDOMEN: Soft. Epigastric tenderness. No signs of distention. No rebound no guarding, and no masses palpated. Bowel sounds are normal. EXTREMITIES: FROM in all major joints, no edema, no cyanosis or clubbing. NEURO: Alert and oriented x 3. No acute neurological deficits. Speech is normal and follows commands. SKIN: Dry and warm Triage Information Reviewed: Yes Vital Signs On Initial Exam: Initial Vitals Temp Pulse Resp BP Pulse Ox 98 F 81 18 142/86 100 09/06/17 17:30 09/06/17 17:30 09/06/17 17:30 09/06/17 17:30 09/06/17 17:30 Vital Signs Reviewed: Yes Diagnostics - Vital Signs Vital Signs Temp Pulse Resp BP Pulse Ox 09/06/17 17:30 98 F 81 18 142/86 100 - Laboratory Result Diagrams: 09/06/17 18:10 09/06/17 18:10 Lab Statement: Any lab studies that have been ordered have been reviewed, and results considered in the medical decision making process. - Radiology Chest XR Xray Interpretation: No Acute Changes - IMPRESSION: No active cardiopulmonary disease is noted. Dr. Diallo has reviewed this radiology report. Radiology Interpretation Completed By: Radiologist - EKG 17:31 Cardiac Rate: NL EKG Rhythm: Sinus Rhythm - at 71 bpm EKG Interpretation: ST depression in V2, V3, V4, V5, V6. Chest Pain Course/Dx - Course Assessment/Plan: This pt is a 67 y/o female presenting to [facility] c/o left sided chest pain since approximately 17:00 today. Pt reports that at onset of her chest pain she was at rest sitting. She additionally states SOB, myalgia, and abd pain. Pt describes myalgia as pain from the top of her head down to her toes. Denies fever, chills, nausea, vomiting. Pt has ran out of her medication domperidone which she is supposed to take for gastroparesis. Test results without any significant abnormalities except for potassium of 2.4, magnesium of 1.3, possibly secondary to alcohol consumption, lactic acid of 2.9. EKG shows ST depression V2, V3, V4, V5, and V6. Chest XR is negative. In the ED course the pt was given IV fluids, magnesium sulfate, potassium chloride. I discussed the pts case with Dr. Gonzalez, hospitalist, who has accepted the pt for admission. Pt is hemodynamically stable, alert and oriented x3. - Diagnoses Provider Diagnoses: Hypokalemia, Hypomagnesemia, Chest pain, Abnormal EKG - Provider Notifications Discussed Care Of Patient With: Héctor Gonzalez Time Discussed With Above Provider: 18:42 Instructed by Provider To: Other - I discussed pt care with Dr. Gonzalez, hospitalist, who has agreed to admit the pt. Discharge - Discharge Plan Condition: Stable Disposition: ADMITTED TO [facility] Referrals: Michael Shore MD [Primary Care Provider] - The documentation as recorded by the Matt munson Angela accurately reflects the service I personally performed and the decisions made by , Timoteo Diallo MD.
[2017-09-07] MEDS ORDERED: Ondansetron INJ* 2 MG/ML VIAL IV PRN (10:16)
[2017-09-07] MEDS: LORazepam TAB(*) 1 MG PO PRN (11:13)
[2017-09-07] MEDS: oxyCODONE TAB* 5 MG TAB PO PRN ×2 (14:51→21:56)
--- NOTE | 2017-09-07 16:01 | PN ---
Subjective Date of Service: 09/07/17 Interval History: complains of ongoing abdominal pain diffusely today. she had some nausea this morning, no vomiting, and about 6 loose stools. the symptoms have been ongoing since she ran out of domperidone. no fevers/chills. Objective Active Medications: Acetaminophen (Tylenol Tab*) 650 mg PO Q6H PRN PRN Reason: FEVER/PAIN Last Admin: 09/07/17 04:16 Dose: 650 mg Amlodipine Besylate (Norvasc Tab*) 5 mg PO DAILY [facility] Last Admin: 09/07/17 08:36 Dose: 5 mg Colchicine (Colcrys*) 0.6 mg PO BID [facility] Last Admin: 09/07/17 08:37 Dose: 0.6 mg Dicyclomine HCl (Bentyl Cap*) 10 mg PO QID [facility] Last Admin: 09/07/17 13:31 Dose: Not Given Escitalopram Oxalate (Lexapro (Nf)) 20 mg PO DAILY [facility] Last Admin: 09/07/17 08:36 Dose: 20 mg Heparin Sodium (Porcine) (Heparin Vial(*)) 5,000 units SUBCUT Q8HR [facility] Last Admin: 09/07/17 14:35 Dose: 5,000 units Sodium Chloride (Ns 0.9% 1000 Ml*) 1,000 mls @ 100 mls/hr IV PER RATE [facility] Last Admin: 09/07/17 13:32 Dose: 100 mls/hr Potassium Chloride (Potassium Chloride 10 Meq/50 Ml Ivpremix*) 10 meq in 50 mls @ 50 mls/hr IV Q1H [facility] Stop: 09/07/17 15:59 Last Admin: 09/07/17 14:33 Dose: 50 mls/hr Lorazepam (Ativan Tab(*)) 1 mg PO TID PRN PRN Reason: ANXIETY Last Admin: 09/07/17 11:13 Dose: 1 mg Domperidone 1 Cap 1 cap PO TID [facility] Last Admin: 09/07/17 14:52 Dose: Not Given Omeprazole (Prilosec Cap*) 20 mg PO 0600 [facility] Last Admin: 09/07/17 06:26 Dose: 20 mg Ondansetron HCl (Zofran Inj*) 4 mg IV Q4H PRN PRN Reason: NAUSEA Last Admin: 09/07/17 11:13 Dose: 4 mg Oxycodone HCl (Roxycodone Tab*) 5 mg PO Q6H PRN PRN Reason: PAIN Last Admin: 09/07/17 14:51 Dose: 5 mg Pregabalin (Lyrica Cap(*)) 100 mg PO TID [facility] Last Admin: 09/07/17 14:33 Dose: 100 mg Temazepam (Restoril Cap*) 15 mg PO BEDTIME [facility] Last Admin: 09/06/17 21:08 Dose: 15 mg Vital Signs - 8 hr 09/07/17 09/07/17 09/07/17 08:00 08:37 11:13 Temperature Pulse Rate Respiratory 20 20 22 Rate Blood Pressure (mmHg) O2 Sat by Pulse Oximetry 09/07/17 09/07/17 09/07/17 11:40 11:41 11:44 Temperature 98.2 F Pulse Rate 68 Respiratory 20 20 16 Rate Blood Pressure 119/59 (mmHg) O2 Sat by Pulse 98 Oximetry 09/07/17 09/07/17 09/07/17 13:31 14:25 14:33 Temperature Pulse Rate Respiratory 18 16 18 Rate Blood Pressure (mmHg) O2 Sat by Pulse Oximetry 09/07/17 14:51 Temperature Pulse Rate Respiratory 16 Rate Blood Pressure (mmHg) O2 Sat by Pulse Oximetry Oxygen Devices in Use Now: None Appearance: alert, well appearing in no distress, nontoxic Eyes: No Scleral Icterus Ears/Nose/Mouth/Throat: NL Teeth, Lips, Gums Neck: NL Appearance and Movements; NL JVP Respiratory: Symmetrical Chest Expansion and Respiratory Effort Cardiovascular: NL Sounds; No Murmurs; No JVD, RRR Abdominal: - - soft, tender to deep palpation throughout without guarding or rebound Lymphatic: No Cervical Adenopathy Extremities: No Edema Skin: No Rash or Ulcers Neurological: Alert and Oriented x 3 Result Diagrams: 09/07/17 05:02 09/07/17 05:02 Microbiology and Other Data: Microbiology 09/06/17 19:40 Influenza Types A,B Antigen (KEN) - Final Nasal Specimen received for Influenza A/B Molecular testing Assess/Plan/Problems-Billing Assessment: 67 yo female with history of IBS and gastroparesis admitted yesterday with chest pain, which has since resolved, and now with abdominal pain and loose stools. - Patient Problems (1) Gastroparesis Current Visit: Yes Status: Acute Code(s): K31.84 - GASTROPARESIS SNOMED Code(s): 092713829 Comment: diagnosed via a gastric emptying study seems to be slightly flared now +/- IBS flare treat pain and nausea and supportive care (2) IBS (irritable bowel syndrome) Current Visit: No Status: Acute Comment: diarrhea predominant, likely with a flare now check fecal fat to rule out pancreatic insufficiency resume domperidone (3) Chest pain Current Visit: No Status: Acute Code(s): R07.9 - CHEST PAIN, UNSPECIFIED SNOMED Code(s): 52790347 Comment: atypical and resolved. ekg and troponins ruled out ACS. the pain is described as epigastric, and I suspect a gastroparesis/IBS flare is actually what prompted her ED visit
[2017-09-07] MEDS: Temazepam CAP* 15 MG PO SCH (21:15)
[2017-09-08 05:15] LABS: ABS Basophils 0 10^3/ul (0-0.2); ABS Eosinophils 0.1 10^3/ul (0-0.6); ABS Lymphocytes 2.3 10^3/ul (1.0-4.8); ABS Monocytes 0.7 10^3/ul (0-0.8); ABS Neutrophils 2.3 10^3/ul (1.5-7.7); ABS Nucleated RBC 0 10^3/ul; Eosinophil % 2.4 % (0-6); Hematocrit 36 % (35-47); Hemoglobin 12.2 g/dl (12.0-16.0); Mean Corpuscular HGB Conc 34 g/dl (31-36); Mean Corpuscular Hemoglobin 31 pg (27-31); Mean Corpuscular Volume 93 fL (80-97); Mean Platelet Volume 9 um3 (7.4-10.4); Nucleated Red Blood Cells % 0; Platelet Count 203 10^3/ul (150-450); Red Cell Distribution Width 15 % (10.5-15); White Blood Count 5.5 10^3/ul (3.5-10.8)
[2017-09-08 05:34] LABS: EGFR Non-African American 115.1 (>60)
[2017-09-08] MEDS: Omeprazole CAP* 20 MG PO SCH (05:36)
[2017-09-08] MEDS: Heparin VIAL(*) 5000 UNITS/ML VIAL (FIVE THOUSAND) SUBCUT SCH ×2 (05:36→15:25)
[2017-09-08] MEDS ORDERED: Potassium Chloride LIQUID* 20 MEQ PACKET PO ONE (08:03)
[2017-09-08] MEDS ORDERED: Magnesium Sulfate 2 GM IV* 2 GM/50 ML BAG IVPB ONE (08:03)
[2017-09-08] MEDS: Colchicine* 0.6 MG TAB PO SCH (08:43)
[2017-09-08] MEDS: amLODIPine TAB* 5 MG PO SCH (08:43)
[2017-09-08] MEDS: CMCS: Escitalopram (NF) 10 MG TAB PO SCH (08:43)
[2017-09-08] MEDS: Acetaminophen TAB* 325 MG PO PRN (08:43)
[2017-09-08] MEDS: Dicyclomine CAP* 10 MG PO SCH ×2 (08:44→15:23)
[2017-09-08] MEDS: Pregabalin CAP(*) 100 MG PO SCH ×2 (08:44→15:23)
[2017-09-08] MEDS: oxyCODONE TAB* 5 MG TAB PO PRN ×2 (08:44→15:24)
[2017-09-08] MEDS: DOMPERIDONE PO SCH ×2 (08:48→15:25)
[2017-09-08] MEDS ORDERED: Potassium Chloride IV* 60 MEQ in NS 0.9% 500 ML* 500 ML IVPB ONE (09:00)
[2017-09-08] MEDS: KCL 10 MEQ/50 ML IVPREMIX* 10 MEQ/50 ML BAG IV SCH ×3 (09:38→11:33)
[2017-09-08] MEDS: NS 0.9% 1000 ML* 1,000 ML IV SCH (11:31)
[2017-09-08] MEDS: LORazepam TAB(*) 1 MG PO PRN (11:31)
[2017-09-08 11:43] VITALS: BP 127/79
[2017-09-08 13:19] LABS: EGFR Non-African American 117.6 (>60)
--- NOTE | 2017-09-09 11:11 | DS ---
CC: Dr. Malik; Dr. Shore * DISCHARGE SUMMARY: DATE OF ADMISSION: 09/06/17 DATE OF DISCHARGE: 09/08/17 PRIMARY DISCHARGE DIAGNOSES: 1. Atypical chest pain. 2. Gastroparesis. 3. Irritable bowel syndrome. SECONDARY DISCHARGE DIAGNOSES: 1. Anxiety. 2. Depression. 3. Hyperlipidemia. 4. Gastroesophageal reflux disease. 5. Small intestinal bacterial overgrowth. PHYSICAL EXAMINATION: Respiratory rate 18, temperature 97.6, heart rate 85, pulse ox 97% on room air, blood pressure 127/79. General: Alert, well- appearing, nontoxic female in no distress. HEENT: Pupils 4 mm bilaterally and reactive to light. No nystagmus. Moist mucosa. No pharyngeal exudates or erythema. Neck: No JVP. No cervical adenopathy. Chest: Regular rate and rhythm. No murmurs. PMI is nondisplaced. Lungs are clear bilaterally. Abdomen is soft, mildly tender diffusely. Liver is palpable at the costal margin. Spleen is nonpalpable. There is no guarding or rebound. Bowel sounds are hyperactive. Extremities: No edema. No rashes. No ulcers. No ecchymosis. Neurologic: Strength 5+ throughout. Sensation is grossly intact. HOSPITAL COURSE BY PROBLEM: 1. Atypical chest pain. Ms. Joseph initially presented to the emergency department with concerns for chest pain that she localized to her abdomen with some extension up into her chest. However, upon arrival to the emergency department, her pain was all in her abdomen. The pain she described coincided with an ongoing complaint of epigastric pain related to gastroparesis and IBS, which has worsened markedly since she ran out of domperidone about a week ago. She never has exertional chest pain and has good exercise tolerance. The chest pain occurred at rest and was described as aching and resolved on its own. She was admitted for an acute coronary syndrome rule out. Her troponins remained negative at 0.00 and her EKG had no ischemic changes. 2. Gastroparesis/IBS flare. She was treated for a flare of gastroparesis and IBS with supportive care with IV fluids and pain and nausea control as needed. She cannot take Reglan due to an allergy; however, she was given conservative measures and her diet was advanced. She was tolerating a full diet at the time of discharge with multiple small meals per day. She required no antiemetics and no pain medication. She has domperidone ordered and expects to receive it this week. She reports is the only thing that has helped her symptoms since her diagnosis of gastroparesis in the fall. 3. Hypokalemia and hypomagnesemia. Upon arrival to the emergency department, she was noted to be hypokalemic to 2.4 and hypomagnesemic to 1.3. She did require potassium supplementation for several days throughout her admission, but at the time of discharge, her potassium is 4.3. She is being discharged on potassium 20 mEq daily and instruction to follow up with her PCP for repeat BNP check within the next week. 4. Elevated liver enzymes on a recent CT abdomen and pelvis. In May 2017 , she was noted to have hepatic steatosis. She and her family endorsed increased alcohol intake recently and a generalized poor appetite that consists of high fat and processed meats. I discussed the finding of hepatic steatosis with abnormal liver enzymes with Ms. Joseph and explained that this can be a precursor to cirrhosis and that she should abstain from alcohol to prevent this from progressing. She and her family agreed. 5. Anxiety and depression. She was continued on Lexapro, Restoril, and Lyrica. 6. Recent gout flare in her right great toe. She had been taking colchicine and is to continue taking colchicine b.i.d. now prophylactically. DISPOSITION: She was discharged on 09/08/17 with instruction to follow up with Dr. Malik and Dr. Shore. Her only new medication on this discharge is KCl 20 mEq daily. [id number]/[facility] #: [id number] [facility]
== END 2017-09-08 16:37 | disposition home or self-care (01) ==
LOC: ED 17:28 → MEDTELE 19:15
PROVIDERS: ADMIT Hospitalist; ATTEND Internal Medicine
DX: R07.89 Other chest pain (principal); K31.84 Gastroparesis; K58.9 Irritable bowel syndrome, unspecified; R06.02 Shortness of breath; R94.31 Abnormal electrocardiogram [ECG] [EKG]; F41.9 Anxiety disorder, unspecified; F32.9 Major depressive disorder, single episode, unspecified; E78.5 Hyperlipidemia, unspecified; K21.9 Gastro-esophageal reflux disease without esophagitis; E87.6 Hypokalemia; E83.42 Hypomagnesemia; R74.8 Abnormal levels of other serum enzymes; Z79.899 Other long term (current) drug therapy; Z88.8 Allergy status to other drugs, medicaments and biological substances
CPT/HCPCS: 36415; 71046; 80048; 80053; 80320; 81003; 82550; 82553; 82710; 82977; 83605; 83690; 83735; 83880; 84100; 84443; 84484; 85025; 85379; 87040; 87502; 93005; 96361; 96365; 96366; 96372; 96375; 99284; A9270-GY; G0378; G0480; J1644; J2405; J3475; J3480

== ENCOUNTER 2018-09-03 09:51 | Day surgery (SDC) | payer MEDICARE ==
[~2018-09-03 09:51] MED LIST: Acetaminophen TAB* 325 MG PO PRN; Buffered Lidocaine 1% SYRIN* 1 ML/SYRINGE INTRADERM ONE
[2018-09-03] MEDS ORDERED: Midazolam* 1 MG/ML 2 ML VIAL (2 MG) ONE (12:20)
[2018-09-03 12:49] VITALS: BP 138/57
--- NOTE | 2018-09-03 13:21 | OP ---
DATE OF OPERATION: 09/03/2018. DATE OF : 1950. SURGEON: Paul Ledesma M.D. PREOPERATIVE DIAGNOSIS: Cataract left eye. POSTOPERATIVE DIAGNOSIS: Cataract left eye. OPERATIVE PROCEDURE: Extracapsular cataract extraction with intraocular lens implant left eye. PROCEDURE: The patient was brought to the operating room after being given 1/2% Alcaine with epineph rine drops in the preoperative area. The eye was prepped and draped in the usual sterile fashion. S terile drape and eyelid speculum were placed. Again, topical 1/2% Alcaine with epinephrine was given . A paracentesis incision was made at the 3 o'clock position with the No.75 blade. Clear cornea inc ision 2.2 x 2.2-mm was created at the 6 o'clock position starting at the anterior limbus using the 2. 2-mm keratome. The anterior chamber was irrigated with 0.4 mL of 1% non-preservative intracameral li docaine and filled with DisCoVisc. A capsulorrhexis was completed using the cystotome and the Utrata forceps. Hydrodissection was performed with balanced salt solution. The lens nucleus was removed wi th the Phacoemulsification handpiece without incident. Cortex was removed with the irrigation-aspira tion handpiece. The capsular bag was re-inflated using DisCoVisc and an [id number] 20.5 implant was inse rted with the shooter. The irrigation-aspiration handpiece was used to remove all residual DisCoVisc . The eye was refilled with balanced salt solution and the wound checked and found to be watertight. Topical Maxitrol drops were given. [id number]/[facility] #: [id number]
== END 2018-09-03 12:58 | disposition home or self-care (01) ==
LOC: OREAST 09:51
PROVIDERS: ATTEND Specialist
DX: H25.812 Combined forms of age-related cataract, left eye (principal); H01.024 Squamous blepharitis left upper eyelid; H01.021 Squamous blepharitis right upper eyelid; H01.022 Squamous blepharitis right lower eyelid; H01.025 Squamous blepharitis left lower eyelid; I10 Essential (primary) hypertension; K21.9 Gastro-esophageal reflux disease without esophagitis; F41.8 Other specified anxiety disorders; E78.00 Pure hypercholesterolemia, unspecified; M10.9 Gout, unspecified
CPT/HCPCS: J2250; V2632